=== PATIENT | male | born 1960 | race Caucasian/White ===

== ENCOUNTER 2017-07-28 14:16 | Inpatient (IN) | payer OTHER ==
[2017-07-28] MEDS: MUPIROCIN 2% 22 GM OINT TOP (17:30)
[2017-07-28] MEDS: CEFTRIAXONE 2 GM INJ IM (18:18)
[2017-07-28] MEDS ORDERED: HYDROCODONE/APAP (5/325) TAB PO (22:30)
[2017-07-28] MEDS ORDERED: ACETAMINOPHEN 325 MG TAB PO (22:30)
[2017-07-28] MEDS ORDERED: ZOLPIDEM 5 MG TAB PO (23:00)
[2017-07-28] MEDS ORDERED: oxyCODONE (CR) 15 MG TAB [oxyCONTIN] PO (23:00)
[2017-07-29] MEDS: oxyCODONE (CR) 10 MG TAB [oxyCONTIN] PO ×3 (00:08→20:17)
[2017-07-29] MEDS: CLINDAMYCIN 300 MG CAP PO ×3 (00:33→12:05)
[2017-07-29] MEDS ORDERED: VANCOMYCIN IV PER PHARMACY XX (06:30)
[2017-07-29] MEDS: VANCOMYCIN 2 GM in SOD CHLORIDE 0.9% 500 ML IVPB ×2 (08:22→18:27)
[2017-07-29] MEDS: ASPIRIN 81 MG TAB PO (09:23)
[2017-07-29] MEDS: ENOXAPARIN 40 MG/0.4 ML SYG SC (09:24)
[2017-07-29] MEDS: LIDOCAINE 1% (MPF) 5 ML VIAL SC (17:05)
[2017-07-29] MEDS: SOD CHLORIDE 0.9% 100 ML (17:15)
[2017-07-29 20:34] LABS: ADD MAN DIFF? NO
[2017-07-29 20:35] LABS: WHITE BLOOD COUNT 9.8 10^3/ul (4.8-10.8)
[2017-07-29 20:35] LABS: BASOPHIL # 0.1 10^3/ul (0.0-0.1); BASOPHILS % 0.5 % (0.0-2.0); EOSINOPHILS # 0.1 10^3/ul (0.0-0.5); EOSINOPHILS % 1.2 % (0.0-7.0); HEMATOCRIT 29.6 % (42.0-52.0); HEMOGLOBIN 9.5 g/dl (14.0-18.0); LYMPHOCYTES # 2.4 10^3/ul (0.8-2.9); LYMPHOCYTES % 24.6 % (15.0-51.0); MEAN CORPUSCULAR HEMOGLOBIN 25.1 pg (29.0-33.0); MEAN CORPUSCULAR HGB CONC 32.1 g/dl (32.0-37.0); MEAN CORPUSCULAR VOLUME 78.3 fl (82.0-101.0); MEAN PLATELET VOLUME 8.9 fl (7.4-10.4); MONOCYTE # 0.6 10^3/ul (0.3-0.9); MONOCYTES % 6.3 % (0.0-11.0); NEUTROPHIL # 6.2 10^3/ul (1.6-7.5); NEUTROPHILS % 63.1 % (39.0-77.0); PLATELET COUNT 581 10^3/UL (140-415); RED BLOOD COUNT 3.78 10^6/ul (4.70-6.10)
[2017-07-29 20:44] LABS: HEMOGLOBIN A1C 5.5 % (0-5.9)
[2017-07-29 21:10] LABS: ANION GAP 14 (8-16); BLOOD UREA NITROGEN 15 mg/dl (7-20); CALCIUM 8.8 mg/dl (8.4-10.2); CARBON DIOXIDE 28 mmol/L (21-31); CHLORIDE 99 mmol/L (97-110); CHOLESTEROL 126 mg/dl (100-200); CREATININE 0.73 mg/dl (0.61-1.24); GLUCOSE 118 mg/dl (70-220); HDL CHOLESTEROL 14 mg/dl (30-78); LDL CHOLESTEROL,CALCULATED 50 mg/dl; POTASSIUM 4.1 mmol/L (3.5-5.1); SODIUM 137 mmol/L (135-144); TRIGLYCERIDES 310 mg/dl (0-149)
[2017-07-29] MEDS: HYDROmorphONE 0.5 MG/0.5 ML SYG IV (23:32)
[2017-07-30] MEDS: HYDROmorphONE 0.5 MG/0.5 ML SYG IV ×2 (03:45→07:47)
[2017-07-30 05:15] LABS: ADD MAN DIFF? NO
[2017-07-30 05:18] LABS: ABNORMAL IP MESSAGE 1; BASOPHIL # 0.1 10^3/ul (0.0-0.1); BASOPHILS % 0.6 % (0.0-2.0); EOSINOPHILS # 0.2 10^3/ul (0.0-0.5); EOSINOPHILS % 1.8 % (0.0-7.0); HEMATOCRIT 29.1 % (42.0-52.0); HEMOGLOBIN 9.4 g/dl (14.0-18.0); LYMPHOCYTES % 23.3 % (15.0-51.0); MEAN CORPUSCULAR HEMOGLOBIN 25.1 pg (29.0-33.0); MEAN CORPUSCULAR HGB CONC 32.3 g/dl (32.0-37.0); MEAN CORPUSCULAR VOLUME 77.8 fl (82.0-101.0); MEAN PLATELET VOLUME 9.1 fl (7.4-10.4); MONOCYTE # 0.6 10^3/ul (0.3-0.9); MONOCYTES % 6.9 % (0.0-11.0); NEUTROPHIL # 5.3 10^3/ul (1.6-7.5); NEUTROPHILS % 62.3 % (39.0-77.0); PLATELET COUNT 593 10^3/UL (140-415); POSITIVE DIFF @See below; RED BLOOD COUNT 3.74 10^6/ul (4.70-6.10)
[2017-07-30 05:18] LABS: WHITE BLOOD COUNT 8.5 10^3/ul (4.8-10.8)
[2017-07-30 05:53] LABS: ANION GAP 15 (8-16); BLOOD UREA NITROGEN 14 mg/dl (7-20); CALCIUM 8.9 mg/dl (8.4-10.2); CARBON DIOXIDE 29 mmol/L (21-31); CHLORIDE 99 mmol/L (97-110); CREATININE 0.68 mg/dl (0.61-1.24); GLUCOSE 110 mg/dl (70-220); POTASSIUM 4.2 mmol/L (3.5-5.1); SODIUM 139 mmol/L (135-144)
[2017-07-30] MEDS: VANCOMYCIN 1.5 GM in SOD CHLORIDE 0.9% 250 ML IVPB (06:17)
[2017-07-30] MEDS: ASPIRIN 81 MG TAB PO (08:29)
[2017-07-30] MEDS: oxyCODONE (CR) 10 MG TAB [oxyCONTIN] PO (08:29)
[2017-07-30] MEDS: ENOXAPARIN 40 MG/0.4 ML SYG SC (08:32)
[2017-07-30] MEDS ORDERED: ATORVASTATIN 20 MG TAB PO (21:00)
== END 2017-07-30 13:00 | disposition left against medical advice (07) | DRG 603 ==
LOC: E/R 14:16 → PP2 17:02
DX: L03.116 Cellulitis of left lower limb (principal); L03.115 Cellulitis of right lower limb; I87.2 Venous insufficiency (chronic) (peripheral)
CPT/HCPCS: 36569; 71045; 76937; 80048; 80061; 83036; 85025; 96372; 99285-25